=== PATIENT | female | born 1960 | race Caucasian/White ===

== ENCOUNTER → 2016-03-23 | Outpatient (CLI) | payer BC | LOC: PCVCIMAG 15:08 | PROVIDERS: ATTEND Internal Medicine | DX: Z01.818 Encounter for other preprocedural examination (principal); I65.23 Occlusion and stenosis of bilateral carotid arteries | CPT/HCPCS: 93880 ==

== ENCOUNTER → 2017-12-20 | Outpatient (CLI) | payer OTHER ==
--- NOTE | 2017-12-20 15:36 | PCVCIMAG ---
APPROVED REPORT Study performed: 12/20/2017 11:17:46 EXAM: Comprehensive 2D, Doppler, and color-flow Echocardiogram Patient Location: Echo lab Status: routine BSA: 2.02 HR: 94 bpmBP: 190/110 mmHg Rhythm: NSR Other Information Study Quality: Technically Limited Risk Factors: Cardiac Risk Factors: HTN, Hyperlipidemia, Smoking Indications CAD Hypertension/HDD CABG, Multiple sclerosis, Family history of CAD Echo Enhancing Agent Indication: Endocardial border delineation Agent(s) / Amount(s) Used: [employer] cc 2D Dimensions RVDd: 24.94 mm IVSd: 10.55 (7-11mm)LVOT Diam: 18.10 (18-24mm) LVDd: 32.93 mm PWd: 9.46 (7-11mm)Ascending Ao: 30.02 (22-36mm) LVDs: 22.39 (25-40mm) Left Atrium: 39.01 (27-40mm) Aortic Root: 30.65 mm Volumes Left Atrial Volume (Systole) Single Plane 4CH: 44.01 mLSingle Plane 2CH: 51.89 mL LA ESV Index: 20.00 mL/m2 Aortic Valve AoV Peak Berry.: 1.17 m/s AO Peak Gr.: 5.44 mmHg Pulmonary Valve PV Peak Gr.: 2.65 mmHg Tricuspid Valve TR Peak Berry.: 2.92 m/s TR Peak Gr.: 34.16 mmHg Left Ventricle The left ventricle is normal size. There is normal LV segmental wall motion. There is normal left ventricular wall thickness. Left ventricular systolic function is normal. The left ventricular ejection fraction is within the normal range. LVEF is 55-60%. This study is not technically sufficient to allow evaluation of the LV diastolic function. Right Ventricle The right ventricle is normal size. The right ventricular systolic function is normal. Atria The left atrium size is normal. The right atrium size is normal. Aortic Valve The aortic valve is normal in structure. No aortic regurgitation is present. There is no aortic valvular stenosis. Mitral Valve The mitral valve is normal in structure. There is no mitral valve regurgitation noted. No evidence of mitral valve stenosis. Tricuspid Valve The tricuspid valve is normal in structure. Trace tricuspid regurgitation. Pulmonary artery pressure is 40mmHg. Pulmonic Valve The pulmonary valve is normal in structure. Trace pulmonic regurgitation. Great Vessels The aortic root is normal in size. IVC is normal in size and collapses >50% with inspiration. Pericardium There is no pericardial effusion. <Conclusion> Left ventricular systolic function is normal. There is normal LV segmental wall motion. LVEF is 55-60%. The aortic valve is normal in structure. No aortic regurgitation or stenosis The mitral valve is normal in structure. No mitral valve regurgitation Trace tricuspid regurgitation. Pulmonary artery pressure is 40mmHg. There is no pericardial effusion.
== END | disposition home or self-care (01) ==
LOC: PCVCIMAG 11:09
PROVIDERS: ATTEND Internal Medicine
DX: I25.10 Atherosclerotic heart disease of native coronary artery without angina pectoris (principal); E11.9 Type 2 diabetes mellitus without complications; I10 Essential (primary) hypertension; Z87.891 Personal history of nicotine dependence
CPT/HCPCS: C8929